=== PATIENT | female | born 1995 | race Caucasian/White ===

== ENCOUNTER 2019-02-25 23:24 | Emergency (ER) | payer SELFPAY ==
[2019-02-25] MEDS ORDERED: Dextrose 5%-0.9% NaCl 1,000 ML IV SCH (23:45)
[2019-02-25] MEDS ORDERED: Ketorolac 30 MG/ML SDV IVPUSH SCH (23:45)
[2019-02-25] MEDS ORDERED: Ondansetron 4 MG/2 ML SDV IVPUSH ONE (23:51)
[2019-02-25] MEDS ORDERED: HYDROmorphone 0.5 MG/0.5 ML Syringe IVPUSH ONE (23:52)
--- NOTE | 2019-02-25 23:52 | EDM.PDOC ---
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 Pain radiates slightly into her back. She states she had mild diffuse lower abdominal cramping pain last night but it seemed to get better overnight. She was able to eat normally today. In the last hour and a half pain in her right lower quadrant and lower abdomen has increased significantly. She states it's constant but she is writhing like a renal colic type patient. Does report that her bowel function is that of chronic constipation and she's not sure when she had her last bowel movement. Last normal menstrual period was about 10 days ago. She does not use any form of control. She states that she is infertile? She is feeling slightly nauseated due to the intensity of the pain tonight. She's had no previous abdominal surgeries. Denies any fever or chills. She states her bowel sounds are very hard and painful to pass and often associated with bleeding per rectum after a bowel movement. Denies any genitourinary complaints. Onset: Sudden Onset Date: 02/25/19 Onset Time: 22:30 Duration: Hour(s):, Getting Worse Location: Reports: Abdomen (Diffuse lower abdominal pain but worse in the right lower quadrant.) Quality: Reports: Ache ( Colicky component to the pain), Sharp, Stabbing Severity: Moderate Improves with: Reports: None Worsens with: Reports: None (810) Context: Reports: Other (Spontaneous occurrence). 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 Denies: Fever, Chills HEENT: Reports: Glasses, Other (Dental problems) Respiratory: Reports: No Symptoms Cardiovascular: Reports: No Symptoms Endocrine: Reports: Fatigue GI/Abdominal: Reports: Abdominal Pain (See history present illness), Constipation (Chronic constipation problems), Hematochezia, Nausea (Nauseated tonight associated with the intensity of abdominal pain) : Reports: No Symptoms, Other (Last normal menstrual period was 10 days ago) Musculoskeletal: Reports: No Symptoms Skin: Reports: No Symptoms Neurological: Reports: No Symptoms Psychiatric: Reports: No Symptoms Hematologic/Lymphatic: Reports: No Symptoms Immunologic: Reports: No Symptoms ED EXAM, GI/ABD - Physical Exam Exam: See Below Exam Limited By: No Limitations General Appearance: Alert, WD/WN, Moderate Distress, Other (She is writhing in pain. Patient is afebrile and vital signs show a heart rate of 88 with a respiratory of 18 BP 107/80 with pulse oximetry of 98% on room air.) Eyes: Bilateral: Normal Appearance (No scleral icterus or blepharal pallor.) Throat/Mouth: Normal Inspection, Normal Lips, Normal Oropharynx, Other Head: Atraumatic, Normocephalic (Tongue is moist) Neck: Normal Inspection, Supple, Non-Tender, Full Range of Motion. No: Lymphadenopathy (L), Lymphadenopathy (R) Respiratory/Chest: No Respiratory Distress, Lungs Clear, Normal Breath Sounds, No Accessory Muscle Use Cardiovascular: Normal Peripheral Pulses, Regular Rate, Rhythm, No Edema, No Gallop GI/Abdominal Exam: Guarding ( but not localized to McBurney's point.), Tender ( Tender to palpation particularly throughout the right hemicolon distribution), Abnormal Bowel Sounds (Hyperactive bowel sounds in all 4 quadrants.), Other (Is a palpable left hemicolon right hemicolon and a mass suprapubically suspicious for colon. No surgical scars noted.) Back Exam: Normal Inspection, Full Range of Motion. No: CVA Tenderness (L), CVA Tenderness (R) Extremities: Normal Inspection, Normal Range of Motion, Non-Tender, No Pedal Edema Neurological: Alert, Oriented, CN II-XII Intact, Normal Cognition Psychiatric: Anxious Skin Exam: Warm, Dry, Intact, Normal Color, No Rash Course - Vital Signs Last Recorded V/S: Last Vital Signs Temp 36.6 C 02/25/19 23:31 Pulse 88 02/25/19 23:31 Resp 18 02/25/19 23:31 BP 107/80 02/25/19 23:31 Pulse Ox 98 02/25/19 23:31 - Orders/Labs/Meds Orders: Active Orders 24 hr Category Date Time Status Abdomen 1V Flat [CR] Stat Exams 02/25/19 23:50 Taken Labs: Laboratory Tests 02/25/19 02/25/19 02/25/19 Range/Units 23:44 23:44 23:44 WBC 7.48 (3.98-10.04) K/mm3 RBC 4.62 (3.98-5.22) M/mm3 Hgb 14.1 (11.2-15.7) gm/dl Hct 41.3 (34.1-44.9) % MCV 89.4 (79.4-94.8) fl MCH 30.5 (25.6-32.2) pg MCHC 34.1 (32.2-35.5) g/dl RDW Std Deviation 43.2 (36.4-46.3) fL Plt Count 366 (182-369) K/mm3 MPV 10.0 (9.4-12.3) fl Neut % (Auto) 50.4 (34.0-71.1) % Lymph % (Auto) 38.6 (19.3-51.7) % [place] % (Auto) 9.9 (4.7-12.5) % Eos % (Auto) 0.7 (0.7-5.8) Baso % (Auto) 0.3 (0.1-1.2) % Neut # (Auto) 3.77 (1.56-6.13) K/mm3 Lymph # (Auto) 2.89 (1.18-3.74) K/mm3 [place] # (Auto) 0.74 H (0.24-0.36) K/mm3 Eos # (Auto) 0.05 (0.04-0.36) K/mm3 Baso # (Auto) 0.02 (0.01-0.08) K/mm3 Sodium 137 (136-145) mEq/L Potassium 4.0 (3.5-5.1) mEq/L Chloride 101 (98-107) mEq/L Carbon Dioxide 23 (21-32) mEq/L Anion Gap 17.0 H (5-15) BUN 11 (7-18) mg/dL Creatinine 0.9 (0.55-1.02) mg/dL Est Cr Clr Drug Dosing 58.16 mL/min Estimated GFR (MDRD) > 60 (>60) mL/min BUN/Creatinine Ratio 12.2 L (14-18) Glucose 102 (74-106) mg/dL Calcium 9.6 (8.5-10.1) mg/dL Total Bilirubin 0.2 (0.2-1.0) mg/dL AST 15 (15-37) U/L ALT 16 (14-59) U/L Alkaline Phosphatase 72 (46-116) U/L C-Reactive Protein < 0.2 (<1.0) mg/dL Total Protein 8.7 H (6.4-8.2) g/dl Albumin 4.5 (3.4-5.0) g/dl Globulin 4.2 gm/dL Albumin/Globulin Ratio 1.1 (1-2) Lipase 104 (73-393) U/L HCG, Qual Negative (NEGATIVE) Urine Color (Yellow) Urine Appearance (Clear) Urine pH (5.0-8.0) Ur Specific [place] (1.005-1.030) Urine Protein (Negative) Urine Glucose (UA) (Negative) Urine Ketones (Negative) Urine Occult Blood (Negative) Urine Nitrite (Negative) Urine Bilirubin (Negative) Urine Urobilinogen (0.2-1.0) Ur Leukocyte Esterase (Negative) Urine RBC (0-5) /hpf Urine WBC (0-5) /hpf Ur Squamous Epith Cells (0-5) /hpf Urine Bacteria (FEW) /hpf Urine Mucus (FEW) /hpf 02/25/19 Range/Units 23:53 WBC (3.98-10.04) K/mm3 RBC (3.98-5.22) M/mm3 Hgb (11.2-15.7) gm/dl Hct (34.1-44.9) % MCV (79.4-94.8) fl MCH (25.6-32.2) pg MCHC (32.2-35.5) g/dl RDW Std Deviation (36.4-46.3) fL Plt Count (182-369) K/mm3 MPV (9.4-12.3) fl Neut % (Auto) (34.0-71.1) % Lymph % (Auto) (19.3-51.7) % [place] % (Auto) (4.7-12.5) % Eos % (Auto) (0.7-5.8) Baso % (Auto) (0.1-1.2) % Neut # (Auto) (1.56-6.13) K/mm3 Lymph # (Auto) (1.18-3.74) K/mm3 [place] # (Auto) (0.24-0.36) K/mm3 Eos # (Auto) (0.04-0.36) K/mm3 Baso # (Auto) (0.01-0.08) K/mm3 Sodium (136-145) mEq/L Potassium (3.5-5.1) mEq/L Chloride (98-107) mEq/L Carbon Dioxide (21-32) mEq/L Anion Gap (5-15) BUN (7-18) mg/dL Creatinine (0.55-1.02) mg/dL Est Cr Clr Drug Dosing mL/min Estimated GFR (MDRD) (>60) mL/min BUN/Creatinine Ratio (14-18) Glucose (74-106) mg/dL Calcium (8.5-10.1) mg/dL Total Bilirubin (0.2-1.0) mg/dL AST (15-37) U/L ALT (14-59) U/L Alkaline Phosphatase (46-116) U/L C-Reactive Protein (<1.0) mg/dL Total Protein (6.4-8.2) g/dl Albumin (3.4-5.0) g/dl Globulin gm/dL Albumin/Globulin Ratio (1-2) Lipase (73-393) U/L HCG, Qual (NEGATIVE) Urine Color Yellow (Yellow) Urine Appearance Clear (Clear) Urine pH 7.0 (5.0-8.0) Ur Specific [place] 1.010 (1.005-1.030) Urine Protein Negative (Negative) Urine Glucose (UA) Negative (Negative) Urine Ketones Negative (Negative) Urine Occult Blood Negative (Negative) Urine Nitrite Negative (Negative) Urine Bilirubin Negative (Negative) Urine Urobilinogen 0.2 (0.2-1.0) Ur Leukocyte Esterase Negative (Negative) Urine RBC Not seen (0-5) /hpf Urine WBC 0-5 (0-5) /hpf Ur Squamous Epith Cells 0-5 (0-5) /hpf Urine Bacteria Rare (FEW) /hpf Urine Mucus Not seen (FEW) /hpf Meds: Medications Discontinued Medications Generic Name Dose Route Start Last Admin Trade Name Vera PRN Reason Stop Dose Admin Dicyclomine HCl 20 mg 02/26/19 01:07 02/26/19 01:11 Bentyl PO 02/26/19 01:08 20 mg ONETIME ONE Administration Hydromorphone HCl 0.5 mg 02/25/19 23:52 02/26/19 00:10 Dilaudid IVPUSH 02/25/19 23:53 0.5 mg ONETIME ONE Administration Dextrose/Sodium Chloride 1,000 mls @ 150 mls/hr 02/25/19 23:45 02/26/19 00:06 Dextrose 5%-Normal Saline IV 150 mls/hr ASDIRECTED ROYCE Administration Ketorolac Tromethamine 30 mg 02/25/19 23:45 02/26/19 00:08 Toradol IVPUSH 30 mg ONETIME ROYCE Administration Magnesium Citrate 296 ml 02/26/19 01:07 02/26/19 01:12 Citrate Of Magnesia PO 02/26/19 01:08 296 ml ONETIME ONE Administration Ondansetron HCl 4 mg 02/25/19 23:51 02/26/19 00:07 Zofran IVPUSH 02/25/19 23:52 4 mg ONETIME ONE Administration - Radiology Interpretation Free Text/Narrative:: 23-year-old female presents to the ED with diffuse lower abdominal pain that she had mildly last evening but returned about an hour and a half ago with marked increase in severity compared to last night. She has had a normal appetite today. She states the pain is making her nauseated but she has not vomited. She localizes the pain to the right hemiabdomen particularly the right lower quadrant. She states she can walk okay. Last menstrual period was 10 days ago and she reports that she's infertile and does not use any form of contraception. Denies any genitourinary complaints. She has a history of chronic severe constipation i.e. severely painful and hard bowel movements that usually cause of rectal bleeding. She not sure when her last bowel movement was but thinks was yesterday. On examination she is afebrile normal vital signs. She is very tender in the right lower quadrant of the abdomen. Mild guarding. Right: Palpable left colon and Propulsid pole mass suprapubically evident on exam. She is very thin making palpation quite easy. Reactive bowel sounds in all 4 quadrants. Clinically I suspect she is constipated. An IV D5 normal saline at 200 mils per hour. She will be given Zofran 4 mg IV and Toradol 30 mg IV and Dilaudid 0.5 mg IV for acute pain relief. Routine labs and CRP to be obtained and a serum lipase. She will have one view of the abdomen obtained. Qualitative beta-hCG will also be done. - Re-Assessments/Exams Free Text/Narrative Re-Assessment/Exam: 02/26/19 00:15 KUB reveals increased stool throughout the entire right hemicolon and left hemicolon. Air distends the transverse colon. There is no signs of bowel obstruction. 02/26/19 00:52 Labs reveal a normal white count at 7.48. Iron differential shows 50% neutrophils. Hemoglobin is 14.1 with hematocrit of 41.3. Platelet count is 366,000. Sodium was 137 with potassium of 4.0. Chloride is 11 with bicarbonate 23 and a gap is mildly elevated at 17.0. BUN is 11 with a creatinine of 0.9 EGFR is greater than 60. Glucose is 102. She was 9.6. Liver function is normal. C-reactive protein is less than 0.2. Total protein is 8.7 with an albumin fraction 4.5. HCG is negative. Urinalysis is completely normal. Discussed the results with the patient. She'll be discharged home to drink 8 ounces of magnesium citrate by mouth with 68 ounces of juice to provide bowel cleanse. It will likely take 3-4 hours to start to work since she just had narcotic pain medication. I did give her a tablet of Bentyl 20 mg that she can take for cramping necessary in the night and a prescription for 5 more tablets if needed. Advised starting MiraLAX powder 17 g once daily to prevent constipation from occurring since this is a rather chronic problem for her. Departure - Departure Time of Disposition: 01:10 Disposition: Home, Self-Care 01 Condition: Fair Clinical Impression: Constipation by delayed colonic transit Abdominal pain Qualifiers: Abdominal location: right lower quadrant Qualified Code(s): R10.31 - Right lower quadrant pain - Discharge Information *PRESCRIPTION DRUG MONITORING PROGRAM REVIEWED*: Not Applicable *COPY OF PRESCRIPTION DRUG MONITORING REPORT IN PATIENT DEANNE: Not Applicable Prescriptions: Dicyclomine [Bentyl] 20 mg PO Q6H PRN #5 tablet PRN Reason: Abdominal cramps/diarrhea Instructions: Constipation, Adult, Abdominal Pain, Adult, [id number] Referrals: PCP,None [Primary Care Provider] - Forms: ED Department Discharge Additional Instructions: Evaluation the emergency room tonight in regards to fairly sudden development of severe right sided and lower abdominal pain. History of chronic constipation. Emanation reveals a very active bowel sounds in all 4 quadrants of the abdomen. I can palpate both right and left colons on examination because you were quite thin. Working diagnosis was suspect constipation is the cause of your pain. Is confirmed by x-ray with a large amount of stool throughout the entire right hemicolon and the left hemicolon and air be in between the bowel up top near the stomach. I attest also proved to be completely negative for any signs of appendicitis and the urinalysis was negative as well. Treatment is therefore to drink 8 ounces of magnesium citrate when you get home mixed with 6- 8 ounces of juice of choice or Gatorade Powerade. Take this once and then I would say go to bed. This will usually take 2-4 hours to work in your bowels will usually move 3 or 4 times ending in bowel cleanse. His Bentyl 20 mg tablet every 6 hours as needed for relief of abdominal cramping pain if necessary. Of note magnesium citrate does not usually cause any abdominal cramps. I would suggest starting MiraLAX powder 17 g or 1 scoop every day to prevent constipation from reoccurring. Return to medical care if you still have significant right lower quadrant abdominal pain in the next 12 hours after bowel cleanse. Sepsis Event Note - Evaluation Sepsis Screening Result: No Definite Risk - Focused Exam Vital Signs: Vital Signs Temp Pulse Resp BP Pulse Ox 02/25/19 23:31 36.6 C 88 18 107/80 98 Date Exam was Performed: 02/26/19 Time Exam was Performed: 01:21 - My Orders Last 24 Hours: My Active Orders 02/25/19 23:50 Abdomen 1V Flat [CR] Stat - Assessment/Plan Last 24 Hours: My Active Orders 02/25/19 23:50 Abdomen 1V Flat [CR] Stat
[2019-02-26] MEDS ORDERED: Magnesium Citrate Solution 296 ML Bottle PO ONE (01:07)
[2019-02-26] MEDS ORDERED: Dicyclomine 10 MG Cap PO ONE (01:07)
--- NOTE | 2019-02-26 06:54 | CR ---
Abdomen: Supine view of the abdomen was obtained. Comparison: No previous abdominal x-ray. Calcifications are seen within the pelvis compatible with phleboliths. Bowel gas pattern is normal. No soft tissue abnormality is seen. Bony structures are unremarkable. Impression: 1. Nothing acute is seen on supine abdominal x-ray. Diagnostic code #1 This report was dictated in [place] Standard Time
== END 2019-02-26 01:15 | disposition home or self-care (01) ==
LOC: JD.ED 23:24
DX: K59.01 Slow transit constipation (principal); Z88.1 Allergy status to other antibiotic agents
CPT/HCPCS: 36415; 74018; 74018-26; 80053; 81001; 83690; 84703; 85025; 86140; 96374; 96375; 99284; 99284-25; A9270-GY; J1170; J1885; J2405; J7042

== ENCOUNTER 2019-03-17 21:47 | Emergency (ER) | payer BC, MEDICAID ==
[2019-03-17] MEDS ORDERED: Ondansetron 4 MG/2 ML SDV IVPUSH ONE (22:53)
[2019-03-17] MEDS ORDERED: Sodium Chloride 0.9% 1,000 ML IV SCH (23:00)
--- NOTE | 2019-03-17 23:00 | EDM.PDOC ---
ED HPI GENERAL MEDICAL PROBLEM - General Chief Complaint: Abdominal Pain Stated Complaint: abdominal pain Time Seen by Provider: 03/17/19 22:22 Source of Information: Reports: Patient, Significant Other (Boyfriend) History Limitations: Reports: No Limitations - History of Present Illness INITIAL COMMENTS - FREE TEXT/NARRATIVE: Ms. Drake is a 23-year-old woman with a past medical history significant for borderline personality disorder, untreated PTSD, and ovarian cysts. She has also been told that she has endometriosis, however, she has never undergone an exploratory laparoscopy to confirm this. She was also told that she likely has fibromyalgia. She has a history of chronic lower abdominal pain since 12 years of age. She says that some days the pain is better, some days worse. She has undergone evaluation in numerous EDs in [place], and she states that she has been to [facility]. She has never had a dedicated Ammonium Nitrate Neutralizer. Medical records indicate that the patient was seen in this ED on 02/25/2019 with lower abdominal pain, worse in the right lower quadrant than elsewhere, with radiation to her back. A KUB found a significant amount of stool. She was prescribed Bentyl and recommended that she take MiraLAX. She states that after she was discharged, she drank some magnesium citrate, had a large bowel movement , which provided relief to her symptoms. The patient now returns to the ED complaining of lower abdominal pain, along with nausea and vomiting. She also reports pain in her arms, and that her legs give out from under her, causing her to collapse. She reports dyspnea when she has pain. She reports urinary frequency, but no dysuria, however, she states that when she urinates, it causes her lower abdominal pain to increase. No recent fever, chills, cough, recent weight gain or weight loss, recent bloody bowel movements or black bowel movements, joint aches, or rashes. She states that she has not had any constipation since she was able to evacuate following her last ED visit, and she has no recent watery diarrhea. Reports that she gets frequent headaches. The patient states that she took Tylenol extra strength around 8:00 this morning , but nothing since. Here in the ED, the patient is found to be tachycardic at 108 bpm, but is otherwise hemodynamically stable. The patient does not have a PCP. She did not receive an influenza vaccine this season, and declined an offer to receive one here today. 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: Reports: Endometriosis (suspected, not confirmed), Other (See Below) (Ovarian cysts) Psychiatric History: Reports: PTSD (untreated), Other (See Below) (Borderline personality disorder) - Past Surgical History HEENT Surgical History: Reports: Adenoidectomy, Myringotomy w Tube(s) (bilateral ) Social & Family History - Family History Family Medical History: Noncontributory - Tobacco Use Smoking Status *Q: Current Every Day Smoker Years of Tobacco use: 11 Packs/Tins Daily: 0.5 Packs/Tins Daily Comment: Down from 1 ppd - Caffeine Use Caffeine Use: Reports: Coffee, Soda - Alcohol Use Alcohol Use History: Yes Alcohol Use Frequency: Socially (occasionally to excess) - Recreational Drug Use Recreational Drug Use: Yes Drug Use in Last 12 Months: Yes Recreational Drug Type: Reports: LSD (Acid) (last took 2014), Marijuana/Hashish (smokes daily), Methamphetamine (last smoked, injected Dec 2017) Recreational Drug Use Frequency: Socially - Living Situation & Occupation Living situation: Reports: Single, with Significant Other (Boyfriend + his father) Occupation: Unemployed ED ROS GENERAL - Review of Systems Review Of Systems: Comprehensive ROS is negative, except as noted in HPI. ED EXAM, GI/ABD - Physical Exam Exam: See Below Exam Limited By: No Limitations General Appearance: Alert, WD/WN, Other (Indicating extreme pain, particularly with any movement or palpation, which resolves when distracted) Eyes: Bilateral: Normal Appearance, EOMI Ears: Normal External Exam, Hearing Grossly Normal Nose: Normal Inspection Throat/Mouth: Normal Inspection, Normal Lips, Normal Voice, No Airway Compromise Head: Atraumatic, Normocephalic Neck: Normal Inspection, Full Range of Motion Respiratory/Chest: No Respiratory Distress, Lungs Clear, Normal Breath Sounds, No Accessory Muscle Use Cardiovascular: Normal Peripheral Pulses, Regular Rate, Rhythm, No Edema, No Gallop, No JVD, No Murmur, No Rub GI/Abdominal Exam: Normal Bowel Sounds, Soft, No Organomegaly, No Distention, No Abnormal Bruit, No Mass, Tender (Generalized, with greater tenderness in the suprapubic region than elsewhere) (Female) Exam: Deferred Rectal (Female) Exam: Deferred Back Exam: Normal Inspection, Full Range of Motion. No: CVA Tenderness (L), CVA Tenderness (R) Extremities: Normal Inspection, Normal Range of Motion, No Pedal Edema, Normal Capillary Refill Neurological: Alert, Oriented, Normal Cognition, No Motor/Sensory Deficits Psychiatric: Anxious Skin Exam: Warm, Dry, Intact, Normal Color, No Rash Course - Vital Signs Last Recorded V/S: Last Vital Signs Temp 36.9 C 03/17/19 21:58 Pulse 108 H 03/17/19 21:58 Resp 16 03/17/19 21:58 BP 114/72 03/17/19 21:58 Pulse Ox 96 03/17/19 21:58 - Orders/Labs/Meds Orders: Active Orders 24 hr Category Date Time Status Abdomen Pelvis w Cont [CT] Stat Exams 03/17/19 22:53 Taken Sodium Chloride 0.9% [Normal Saline] 1,000 ml Med 03/17/19 23:00 Active IV ASDIRECTED Medication Orders Sodium Chloride (Normal Saline) 1,000 mls @ 150 mls/hr IV ASDIRECTED ROYCE Last Admin: 03/17/19 23:10 Dose: 150 mls/hr Labs: Laboratory Tests 03/17/19 03/17/19 03/17/19 Range/Units 22:36 22:36 23:00 WBC 5.91 (3.98-10.04) K/mm3 RBC 3.98 (3.98-5.22) M/mm3 Hgb 12.1 D (11.2-15.7) gm/dl Hct 36.3 (34.1-44.9) % MCV 91.2 (79.4-94.8) fl MCH 30.4 (25.6-32.2) pg MCHC 33.3 (32.2-35.5) g/dl RDW Std Deviation 43.0 (36.4-46.3) fL Plt Count 333 (182-369) K/mm3 MPV 9.2 L (9.4-12.3) fl Neutrophils % (Manual) 47 (40-60) % Band Neutrophils % 0 (0-10) % Lymphocytes % (Manual) 46 H (20-40) % Atypical Lymphs % 0 % Monocytes % (Manual) 5 (2-10) % Eosinophils % (Manual) 1 (0.7-5.8) % Basophils % (Manual) 1 (0.1-1.2) Platelet Estimate Adequate Plt Morphology Comment Normal RBC Morph Comment Normal Sodium (136-145) mEq/L Potassium (3.5-5.1) mEq/L Chloride (98-107) mEq/L Carbon Dioxide (21-32) mEq/L Anion Gap (5-15) BUN (7-18) mg/dL Creatinine (0.55-1.02) mg/dL Est Cr Clr Drug Dosing mL/min Estimated GFR (MDRD) (>60) mL/min BUN/Creatinine Ratio (14-18) Glucose (74-106) mg/dL Calcium (8.5-10.1) mg/dL Total Bilirubin (0.2-1.0) mg/dL AST (15-37) U/L ALT (14-59) U/L Alkaline Phosphatase (46-116) U/L Total Protein (6.4-8.2) g/dl Albumin (3.4-5.0) g/dl Globulin gm/dL Albumin/Globulin Ratio (1-2) Lipase (73-393) U/L Urine Color Yellow (Yellow) Urine Appearance Clear (Clear) Urine pH 6.5 (5.0-8.0) Ur Specific [place] 1.015 (1.005-1.030) Urine Protein Negative (Negative) Urine Glucose (UA) Negative (Negative) Urine Ketones Negative (Negative) Urine Occult Blood Negative (Negative) Urine Nitrite Negative (Negative) Urine Bilirubin Negative (Negative) Urine Urobilinogen 0.2 (0.2-1.0) Ur Leukocyte Esterase Negative (Negative) Urine RBC Not seen (0-5) /hpf Urine WBC 0-5 (0-5) /hpf Ur Squamous Epith Cells 0-5 (0-5) /hpf Urine Bacteria Rare (FEW) /hpf Urine Mucus Not seen (FEW) /hpf Urine HCG, Qual Negative (NEGATIVE) 03/17/19 Range/Units 23:00 WBC (3.98-10.04) K/mm3 RBC (3.98-5.22) M/mm3 Hgb (11.2-15.7) gm/dl Hct (34.1-44.9) % MCV (79.4-94.8) fl MCH (25.6-32.2) pg MCHC (32.2-35.5) g/dl RDW Std Deviation (36.4-46.3) fL Plt Count (182-369) K/mm3 MPV (9.4-12.3) fl Neutrophils % (Manual) (40-60) % Band Neutrophils % (0-10) % Lymphocytes % (Manual) (20-40) % Atypical Lymphs % % Monocytes % (Manual) (2-10) % Eosinophils % (Manual) (0.7-5.8) % Basophils % (Manual) (0.1-1.2) Platelet Estimate Plt Morphology Comment RBC Morph Comment Sodium 139 (136-145) mEq/L Potassium 3.6 (3.5-5.1) mEq/L Chloride 102 (98-107) mEq/L Carbon Dioxide 26 (21-32) mEq/L Anion Gap 14.6 (5-15) BUN 7 (7-18) mg/dL Creatinine 0.8 (0.55-1.02) mg/dL Est Cr Clr Drug Dosing 77.22 mL/min Estimated GFR (MDRD) > 60 (>60) mL/min BUN/Creatinine Ratio 8.8 L (14-18) Glucose 87 (74-106) mg/dL Calcium 9.2 (8.5-10.1) mg/dL Total Bilirubin 0.2 (0.2-1.0) mg/dL AST 12 L (15-37) U/L ALT 18 (14-59) U/L Alkaline Phosphatase 64 (46-116) U/L Total Protein 7.8 (6.4-8.2) g/dl Albumin 4.1 (3.4-5.0) g/dl Globulin 3.7 gm/dL Albumin/Globulin Ratio 1.1 (1-2) Lipase 53 L (73-393) U/L Urine Color (Yellow) Urine Appearance (Clear) Urine pH (5.0-8.0) Ur Specific [place] (1.005-1.030) Urine Protein (Negative) Urine Glucose (UA) (Negative) Urine Ketones (Negative) Urine Occult Blood (Negative) Urine Nitrite (Negative) Urine Bilirubin (Negative) Urine Urobilinogen (0.2-1.0) Ur Leukocyte Esterase (Negative) Urine RBC (0-5) /hpf Urine WBC (0-5) /hpf Ur Squamous Epith Cells (0-5) /hpf Urine Bacteria (FEW) /hpf Urine Mucus (FEW) /hpf Urine HCG, Qual (NEGATIVE) Meds: Medications Generic Name Dose Route Start Last Admin Trade Name Freq PRN Reason Stop Dose Admin Sodium Chloride 1,000 mls @ 150 mls/hr 03/17/19 23:00 03/17/19 23:10 Normal Saline IV 150 mls/hr ASDIRECTED ROYCE Administration Discontinued Medications Generic Name Dose Route Start Last Admin Trade Name Freq PRN Reason Stop Dose Admin Diatrizoate Meglum/Diatrizoate Sod 90 ml 03/18/19 00:28 03/18/19 00:30 Gastrografin 37% PO 03/18/19 00:29 90 ml ONETIME ONE Administration Iopamidol 100 ml 03/18/19 00:29 03/18/19 00:30 Isovue-300 (61%) IVPUSH 03/18/19 00:30 100 ml ONETIME ONE Administration Ketorolac Tromethamine 30 mg 03/18/19 00:02 03/18/19 00:45 Toradol IVPUSH 03/18/19 00:03 30 mg ONETIME STA Administration Ondansetron HCl 4 mg 03/17/19 22:53 03/17/19 23:10 Zofran IVPUSH 03/17/19 22:54 4 mg ONETIME ONE Administration - Re-Assessments/Exams Free Text/Narrative Re-Assessment/Exam: 03/17/19 22:55 I am not convinced that the patient is experiencing the degree of pain that she is trying to impress upon me that she has. There is a considerable amount of drama and exaggeration. Additionally, the patient immediately asked for something for pain. I am concerned about giving her opioids, especially given her prior abuse of drugs. I would prefer to wait to see if there is something that needs treating. I have ordered a workup today that includes blood work, a urinalysis, a urine test, and a CT scan of her abdomen and pelvis with oral and IV contrast. In the meantime, the patient will receive IV Zofran and IV fluid. 03/17/19 23:57 The patient's CBC is unremarkable. Her CMP is unremarkable. Her lipase is low at 53. Her urinalysis is unremarkable. Her urine test is negative. 03/18/19 01:17 CT of the abdomen and pelvis with oral and IV contrast is read by Alesha as: 1. Wall thickening of the descending and sigmoid colon. Finding may be secondary to pseudo-wall thickening / under distention versus mild colitis. 2. No CT findings of acute appendicitis. I suspect that the descending colon wall thickening is likely related to the recent constipation with the patient experienced. I do not clinically suspect colitis. 03/18/19 01:51 Test results discussed with the patient and her boyfriend. As above, today's workup is entirely unremarkable and does not explain the cause of her pain. I suggested that she follow-up with a Ammonium Nitrate Neutralizer that I could refer her to, however, she tells me that she has an appointment to establish a PCP at [facility] 1 week from today, on 03/25/2019 - she does not recall the PCP' s name. Since many PCPs are comfortable managing women's health issues, I am not going to additionally refer the patient to a Ammonium Nitrate Neutralizer at this time, rather, that can be left to her new PCP if felt necessary. Departure - Departure Time of Disposition: 01:54 Disposition: Home, Self-Care 01 Condition: Good Clinical Impression: Abdominal pain of unknown etiology - Discharge Information *PRESCRIPTION DRUG MONITORING PROGRAM REVIEWED*: Not Applicable *COPY OF PRESCRIPTION DRUG MONITORING REPORT IN PATIENT DEANNE: Not Applicable Referrals: PCP,None [Primary Care Provider] - Forms: ED Department Discharge Additional Instructions: You were seen in the emergency room for chronic lower abdominal pain with nausea and vomiting. Workup in the ER included blood work, a urinalysis, a urine test, and a CT scan of your abdomen and pelvis with oral and IV contrast. Your entire workup was unremarkable, and does not explain the cause of your pain. You do not have appendicitis, and, of note, there is no evidence that you have polycystic ovarian syndrome. We recommend that you follow-up with your new PCP at your previously scheduled appointment this coming 03/25/2019. If any other problems, please do not hesitate to return to the ER. Sepsis Event Note - Evaluation Sepsis Screening Result: No Definite Risk - Focused Exam Vital Signs: Vital Signs Temp Pulse Resp BP Pulse Ox 03/17/19 21:58 36.9 C 108 H 16 114/72 96 Date Exam was Performed: 03/18/19 Time Exam was Performed: 01:51 - My Orders Last 24 Hours: My Active Orders 03/17/19 22:53 Abdomen Pelvis w Cont [CT] Stat 03/17/19 23:00 Sodium Chloride 0.9% [Normal Saline] 1,000 ml IV ASDIRECTED - Assessment/Plan Last 24 Hours: My Active Orders 03/17/19 22:53 Abdomen Pelvis w Cont [CT] Stat 03/17/19 23:00 Sodium Chloride 0.9% [Normal Saline] 1,000 ml IV ASDIRECTED
[2019-03-18] MEDS ORDERED: Ketorolac 30 MG/ML SDV IVPUSH STA (00:02)
[2019-03-18] MEDS ORDERED: Diatrizoate Meglumine/Diatrizoate Sodium 37% 120 ML Bottle PO ONE (00:28)
[2019-03-18] MEDS ORDERED: Iopamidol 612 MG/ML 100 ML Bottle IVPUSH ONE (00:29)
--- NOTE | 2019-03-18 07:48 | CT ---
CT abdomen and pelvis Technique: Multiple axial sections were obtained from above the dome of the diaphragm inferiorly through the pubic symphysis. Intravenous and oral contrast was utilized. Comparison: Prior abdominal x-ray of 02/25/19 is available. Findings: Visualized lung bases show nothing acute. Liver contains no focal parenchymal abnormality. Spleen appears within normal limits. Adrenal glands show no nodule. Pancreas is within normal limits. Kidneys show symmetric contrast enhancement without hydronephrosis or mass. Gallbladder contains no calcified gallstones. Aorta shows no aneurysm. No retroperitoneal adenopathy or mesenteric abnormalities are seen. No pelvic mass is identified. Small amount of free fluid is noted within the cul-de-sac believed to be physiologic. Follicles are noted within both ovaries. Minimal bowel wall thickening is seen within the sigmoid colon which is believed to be normal and due to lack of distention. No findings of bowel obstruction or bowel dilatation is seen. No inflammatory change is appreciated. Delayed images show contrast within the distal ureters and within the bladder. Appendix is seen and is normal in size. Bone window settings were reviewed which appear within normal limits for the portions age. Impression: 1. Small amount of free fluid within the pelvis which is believed to be physiologic. 2. Findings within the sigmoid colon believed to be due to under-distention and incidental. 3. Nothing acute is appreciated on CT study of the abdomen and pelvis. Diagnostic code #2 This report was dictated in [place] Standard Time I agree with preliminary report from [facility], finalized on [id number] [id number], 1:51 AM Central Time
== END 2019-03-18 02:07 | disposition home or self-care (01) ==
LOC: JD.ED 21:47
DX: R10.30 Lower abdominal pain, unspecified (principal); F17.210 Nicotine dependence, cigarettes, uncomplicated; Z88.1 Allergy status to other antibiotic agents
CPT/HCPCS: 36415; 74177; 80053; 81001; 81025; 83690; 85007; 85027; 96361; 96374; 96375; 99284; J1885; J2405; J7030; Q9963; Q9967

== ENCOUNTER 2019-04-28 17:47 | Emergency (ER) | payer BC, MEDICAID ==
[2019-04-28] MEDS ORDERED: Ondansetron 4 MG/2 ML SDV IVPUSH ONE (18:31)
[2019-04-28] MEDS ORDERED: Sodium Chloride 0.9% 10 ML Syringe FLUSH PRN (18:31)
[2019-04-28] MEDS ORDERED: Sodium Chloride 0.9% 1,000 ML IV SCH (18:45)
[2019-04-28] MEDS ORDERED: Ketorolac 30 MG/ML SDV IVPUSH ONE (19:09)
--- NOTE | 2019-04-28 19:22 | EDM.PDOC ---
ED HPI GENERAL MEDICAL PROBLEM - General Chief Complaint: Abdominal Pain Stated Complaint: PELVIC PAIN/VOMITING Time Seen by Provider: 04/28/19 18:04 Source of Information: Reports: Patient History Limitations: Reports: No Limitations - History of Present Illness INITIAL COMMENTS - FREE TEXT/NARRATIVE: Patient is a 23-year-old female who presents with complaints of low pelvic pain with intermittent nausea and vomiting for the last week. Patient was seen in this emergency department approximately 1 month ago with similar symptoms. She states the pain has worsened over the last week. She feels that she may have ovarian cysts as she has had them in the past. The pain is located in the bilateral pelvic area. She verbalizes that she has had bilateral ovarian cyst pain in the past. She is also been told in the past that she has endometriosis , however she has never had a exploratory laparoscopy done to officially diagnose that. Patient states she has had chronic pelvic pain since she was 12 years old. She states that she has had regular bowel movements and does not feel she is constipated. She is not on control and states that she is 2 weeks late on her period. Denies any dysuria however has had some frequency. Denies any abnormal vaginal discharge. She also complains of intermittent dizziness after standing. She has not had a syncopal episode associated with this dizziness. Patient does not have a primary care provider nor has she ever seen a glass bulb silverer. Patient did verbalize on her previous visit that she had an appointment scheduled in March with a primary care provider at [place], however she missed that appointment. She states that her next appointment is now on May 19 at [place] to establish care. Pelvic Pain Score (Numeric/FACES): 8 - Related Data Allergies Allergy/AdvReac Type Severity Reaction Status Date / Time doxycycline Allergy Itching Verified 03/17/19 22:01 Home Meds: Home Meds ARIPiprazole [Abilify] 1 tab PO DAILY 04/28/19 [History] Naproxen [Naprosyn] 500 mg PO Q12HR PRN #10 tab 04/28/19 [Rx] Ondansetron [Zofran ODT] 4 mg PO Q6H PRN #10 tab.dis 04/28/19 [Rx] QUEtiapine [SEROquel] 1.5 tab PO BEDTIME 04/28/19 [History] Past Medical History HEENT History: Reports: Other (See Below) Respiratory History: Reports: Asthma Gastrointestinal History: Reports: Irritable Bowel Syndrome, Other (See Below) Other Gastrointestinal History: Diverticulitis [employer] History: Reports: Endometriosis, Other (See Below) Musculoskeletal History: Reports: Other (See Below) Other Musculoskeletal History: pt sttaed having lots of pain but not dx. pt thinks she has fibromyalgia. uses marijuana for pain control. Psychiatric History: Reports: PTSD, Other (See Below) Other Psychiatric History: Borderline personality disorder - Past Surgical History HEENT Surgical History: Reports: Adenoidectomy, Myringotomy w Tube(s) Social & Family History - Family History Family Medical History: Noncontributory - Tobacco Use Smoking Status *Q: Current Every Day Smoker Years of Tobacco use: 12 Packs/Tins Daily: 0.5 - Caffeine Use Caffeine Use: Reports: Coffee, Soda, Tea - Recreational Drug Use Recreational Drug Use: Yes Recreational Drug Type: Reports: Marijuana/Hashish Recreational Drug Use Frequency: Socially - Living Situation & Occupation Living situation: Reports: Single, with Significant Other (Boyfriend + his father) Occupation: Unemployed ED ROS GENERAL - Review of Systems Review Of Systems: Comprehensive ROS is negative, except as noted in HPI. ED EXAM, GI/ABD - Physical Exam Exam: See Below Exam Limited By: No Limitations General Appearance: Alert, WD/WN, No Apparent Distress, Other (Texting on her cell phone during the exam.) Respiratory/Chest: No Respiratory Distress, Lungs Clear, Normal Breath Sounds, No Accessory Muscle Use, Chest Non-Tender Cardiovascular: Normal Peripheral Pulses, Regular Rate, Rhythm, No Edema, No Gallop, No JVD, No Murmur, No Rub GI/Abdominal Exam: Normal Bowel Sounds, Soft, No Organomegaly, No Distention, No Abnormal Bruit, No Mass, Pelvis Stable, Tender (Bilateral suprapubic) Neurological: Alert, Oriented, CN II-XII Intact, Normal Cognition, Normal Gait, Normal Reflexes, No Motor/Sensory Deficits Psychiatric: Normal Affect, Normal Mood Skin Exam: Warm, Dry, Intact, Normal Color, No Rash Course - Vital Signs Last Recorded V/S: Last Vital Signs Temp 99.6 F 04/28/19 18:05 Pulse 98 04/28/19 18:05 Resp 18 04/28/19 18:05 BP 113/73 04/28/19 18:05 Pulse Ox 100 04/28/19 18:05 Orthostatic Blood Pressure [ 109/77 Standing] Orthostatic Blood Pressure [ 104/66 Sitting] Orthostatic Blood Pressure [ 103/61 Supine] - Orders/Labs/Meds Orders: Active Orders 24 hr Category Date Time Status Peripheral IV Care [RC] . DIRECTED Care 04/28/19 18:31 Active Sodium Chloride 0.9% [Normal Saline] 1,000 ml Med 04/28/19 18:45 Active IV ASDIRECTED Sodium Chloride 0.9% [Saline Flush] Med 04/28/19 18:31 Active 10 ml FLUSH ASDIRECTED PRN Peripheral IV Insertion Adult [OM.PC] Stat Oth 04/28/19 18:30 Ordered Medication Orders Sodium Chloride (Normal Saline) 1,000 mls @ 999 mls/hr IV ASDIRECTED ROYCE Last Admin: 04/28/19 18:45 Dose: 999 mls/hr Sodium Chloride (Saline Flush) 10 ml FLUSH ASDIRECTED PRN PRN Reason: Keep Vein Open Last Admin: 04/28/19 18:45 Dose: 10 ml Labs: Laboratory Tests 04/28/19 04/28/19 04/28/19 Range/Units 18:15 18:15 18:38 WBC 8.34 (3.98-10.04) K/mm3 RBC 4.05 (3.98-5.22) M/mm3 Hgb 12.1 (11.2-15.7) gm/dl Hct 36.8 (34.1-44.9) % MCV 90.9 (79.4-94.8) fl MCH 29.9 (25.6-32.2) pg MCHC 32.9 (32.2-35.5) g/dl RDW Std Deviation 44.1 (36.4-46.3) fL Plt Count 312 (182-369) K/mm3 MPV 9.5 (9.4-12.3) fl Neut % (Auto) 67.2 (34.0-71.1) % Lymph % (Auto) 22.4 (19.3-51.7) % Sebastian % (Auto) 9.7 (4.7-12.5) % Eos % (Auto) 0.4 L (0.7-5.8) Baso % (Auto) 0.2 (0.1-1.2) % Neut # (Auto) 5.60 (1.56-6.13) K/mm3 Lymph # (Auto) 1.87 (1.18-3.74) K/mm3 Sebastian # (Auto) 0.81 H (0.24-0.36) K/mm3 Eos # (Auto) 0.03 L (0.04-0.36) K/mm3 Baso # (Auto) 0.02 (0.01-0.08) K/mm3 Sodium (136-145) mEq/L Potassium (3.5-5.1) mEq/L Chloride (98-107) mEq/L Carbon Dioxide (21-32) mEq/L Anion Gap (5-15) BUN (7-18) mg/dL Creatinine (0.55-1.02) mg/dL Est Cr Clr Drug Dosing mL/min Estimated GFR (MDRD) (>60) mL/min BUN/Creatinine Ratio (14-18) Glucose (74-106) mg/dL Calcium (8.5-10.1) mg/dL Total Bilirubin (0.2-1.0) mg/dL AST (15-37) U/L ALT (14-59) U/L Alkaline Phosphatase (46-116) U/L C-Reactive Protein (<1.0) mg/dL Total Protein (6.4-8.2) g/dl Albumin (3.4-5.0) g/dl Globulin gm/dL Albumin/Globulin Ratio (1-2) Urine Color Yellow (Yellow) Urine Appearance Clear (Clear) Urine pH 7.0 (5.0-8.0) Ur Specific [place] 1.020 (1.005-1.030) Urine Protein Negative (Negative) Urine Glucose (UA) Negative (Negative) Urine Ketones Negative (Negative) Urine Occult Blood Negative (Negative) Urine Nitrite Negative (Negative) Urine Bilirubin Negative (Negative) Urine Urobilinogen 0.2 (0.2-1.0) Ur Leukocyte Esterase Trace H (Negative) Urine RBC 0-5 (0-5) /hpf Urine WBC 0-5 (0-5) /hpf Ur Squamous Epith Cells 0-5 (0-5) /hpf Urine Bacteria Few (FEW) /hpf Urine Mucus Not seen (FEW) /hpf Urine HCG, Qual Negative (NEGATIVE) 04/28/19 Range/Units 18:38 WBC (3.98-10.04) K/mm3 RBC (3.98-5.22) M/mm3 Hgb (11.2-15.7) gm/dl Hct (34.1-44.9) % MCV (79.4-94.8) fl MCH (25.6-32.2) pg MCHC (32.2-35.5) g/dl RDW Std Deviation (36.4-46.3) fL Plt Count (182-369) K/mm3 MPV (9.4-12.3) fl Neut % (Auto) (34.0-71.1) % Lymph % (Auto) (19.3-51.7) % Sebastian % (Auto) (4.7-12.5) % Eos % (Auto) (0.7-5.8) Baso % (Auto) (0.1-1.2) % Neut # (Auto) (1.56-6.13) K/mm3 Lymph # (Auto) (1.18-3.74) K/mm3 Sebastian # (Auto) (0.24-0.36) K/mm3 Eos # (Auto) (0.04-0.36) K/mm3 Baso # (Auto) (0.01-0.08) K/mm3 Sodium 141 (136-145) mEq/L Potassium 4.0 (3.5-5.1) mEq/L Chloride 105 (98-107) mEq/L Carbon Dioxide 25 (21-32) mEq/L Anion Gap 15.0 (5-15) BUN 11 (7-18) mg/dL Creatinine 0.8 (0.55-1.02) mg/dL Est Cr Clr Drug Dosing 69.28 mL/min Estimated GFR (MDRD) > 60 (>60) mL/min BUN/Creatinine Ratio 13.8 L (14-18) Glucose 94 (74-106) mg/dL Calcium 9.0 (8.5-10.1) mg/dL Total Bilirubin 0.2 (0.2-1.0) mg/dL AST 11 L (15-37) U/L ALT 17 (14-59) U/L Alkaline Phosphatase 56 (46-116) U/L C-Reactive Protein <0.2 (<1.0) mg/dL Total Protein 7.5 (6.4-8.2) g/dl Albumin 3.9 (3.4-5.0) g/dl Globulin 3.6 gm/dL Albumin/Globulin Ratio 1.1 (1-2) Urine Color (Yellow) Urine Appearance (Clear) Urine pH (5.0-8.0) Ur Specific [place] (1.005-1.030) Urine Protein (Negative) Urine Glucose (UA) (Negative) Urine Ketones (Negative) Urine Occult Blood (Negative) Urine Nitrite (Negative) Urine Bilirubin (Negative) Urine Urobilinogen (0.2-1.0) Ur Leukocyte Esterase (Negative) Urine RBC (0-5) /hpf Urine WBC (0-5) /hpf Ur Squamous Epith Cells (0-5) /hpf Urine Bacteria (FEW) /hpf Urine Mucus (FEW) /hpf Urine HCG, Qual (NEGATIVE) Meds: Medications Generic Name Dose Route Start Last Admin Trade Name Freq PRN Reason Stop Dose Admin Sodium Chloride 1,000 mls @ 999 mls/hr 04/28/19 18:45 04/28/19 18:45 Normal Saline IV 999 mls/hr ASDIRECTED ROYCE Administration Sodium Chloride 10 ml 04/28/19 18:31 04/28/19 18:45 Saline Flush FLUSH 10 ml ASDIRECTED PRN Administration Keep Vein Open Discontinued Medications Generic Name Dose Route Start Last Admin Trade Name Freq PRN Reason Stop Dose Admin Acetaminophen 975 mg 04/28/19 21:03 04/28/19 21:11 Tylenol PO 04/28/19 21:04 975 mg NOW ONE Administration Ketorolac Tromethamine 30 mg 04/28/19 19:09 04/28/19 19:57 Toradol IVPUSH 04/28/19 19:10 30 mg ONETIME ONE Administration Ondansetron HCl 4 mg 04/28/19 18:31 04/28/19 18:45 Zofran IVPUSH 04/28/19 18:32 4 mg ONETIME ONE Administration - Re-Assessments/Exams Free Text/Narrative Re-Assessment/Exam: 04/28/19 21:41 Patient's hematology was grossly unremarkable. Transvaginal ultrasound showed a slightly complicated cyst within the right ovary measuring 3.2 cm. This is believed to be physiologic. She also has a small amount of fluid within the cul -de-sac which is also believed to be physiologic. Discussed with patient that there is a possibility that her pain could be related to endometriosis, however without an exploratory laparoscopy, this cannot be confirmed. We will start her on Naprosyn 500 mg every 12 hours as needed for pain as well as Zofran as needed for nausea. I did provide her with a list of our clinic providers and advised her to call tomorrow morning to set up an appointment with an [employer]. Her appointment at [place] is not until 19 May and I advised that it is likely she will get in before then. Discharge instructions as documented. Departure - Departure Time of Disposition: 21:43 Disposition: Home, Self-Care 01 Condition: Good Clinical Impression: Pelvic pain - Discharge Information *PRESCRIPTION DRUG MONITORING PROGRAM REVIEWED*: No *COPY OF PRESCRIPTION DRUG MONITORING REPORT IN PATIENT DEANNE: No Prescriptions: Naproxen [Naprosyn] 500 mg PO Q12HR PRN #10 tab PRN Reason: Pain Ondansetron [Zofran ODT] 4 mg PO Q6H PRN #10 tab.dis PRN Reason: Pain Instructions: Abdominal Pain, Adult, [id number] Referrals: PCP,None [Primary Care Provider] - Forms: ED Department Discharge Additional Instructions: You were seen in the emergency department today for pelvic pain. As you verbalizes has been a chronic pain problem for you since you are 12 years old, however over the last week you state the symptoms have worsened. Your work-up included lab work, urinalysis, and a pelvic ultrasound. Your work-up was found to be normal with the exception of a 3.2 cm cyst on your right ovary. As we discussed, this is likely not the cause your pain is ovarian cyst do not generally cause pain until they rupture. Your work-up showed that you are not and you do not have a urinary tract infection. Your blood work was all found to be normal. You have been prescribed Zofran as needed for nausea, as well as Naprosyn for pain. Use these medications as prescribed. You have also been provided a list of our medical providers in the clinic as well as a phone number to schedule an appointment. I recommend that you call first thing tomorrow morning to get set up with a glass bulb silverer for ongoing management of your chronic pelvic pain. If you should experience any worsening symptoms of concern, please not hesitate to return to the emergency department. Sepsis Event Note - Evaluation Sepsis Screening Result: No Definite Risk - Focused Exam Vital Signs: Vital Signs Temp Pulse Resp BP Pulse Ox 04/28/19 18:05 99.6 F 98 18 113/73 100 Date Exam was Performed: 04/28/19 Time Exam was Performed: 21:50 - My Orders Last 24 Hours: My Active Orders 04/28/19 18:30 Peripheral IV Insertion Adult [OM.PC] Stat 04/28/19 18:31 Peripheral IV Care [RC] . DIRECTED Sodium Chloride 0.9% [Saline Flush] 10 ml FLUSH ASDIRECTED PRN 04/28/19 18:45 Sodium Chloride 0.9% [Normal Saline] 1,000 ml IV ASDIRECTED - Assessment/Plan Last 24 Hours: My Active Orders 04/28/19 18:30 Peripheral IV Insertion Adult [OM.PC] Stat 04/28/19 18:31 Peripheral IV Care [RC] . DIRECTED Sodium Chloride 0.9% [Saline Flush] 10 ml FLUSH ASDIRECTED PRN 04/28/19 18:45 Sodium Chloride 0.9% [Normal Saline] 1,000 ml IV ASDIRECTED
[2019-04-28] MEDS ORDERED: Acetaminophen 325 MG Tab PO ONE (21:03)
--- NOTE | 2019-04-28 21:11 | US ---
Pelvic ultrasound: Multiple real-time images were obtained transvaginally. Comparison: No prior pelvic ultrasound is available. Uterus is anteverted. No myometrial abnormality is seen. Endometrial thickness is 8.7 mm. There is a small amount of free fluid within the cul-de-sac which is believed to be physiologic. Slightly complicated cyst measuring 3.2 cm is noted within the right ovary. No additional abnormality is appreciated. Measurements: Uterus: Length 6.8 cm, AP height 3.4 cm, transverse width 3.9 cm Right ovary: 5.5 x 2.8 x 3.2 cm Left ovary: 3.9 x 2.2 x 2.3 cm Impression: 1. Slightly complicated cyst within the right ovary measuring 3.2 cm believed to be physiologic. 2. Small amount of fluid within the cul-de-sac also believed to be physiologic. 3. No additional abnormality is appreciated on pelvic ultrasound exam. Diagnostic code #2 Study was dictated in MDT
== END 2019-04-28 21:55 | disposition home or self-care (01) ==
LOC: JD.ED 17:47
DX: R10.2 Pelvic and perineal pain (principal); N83.201 Unspecified ovarian cyst, right side; R11.2 Nausea with vomiting, unspecified; F17.210 Nicotine dependence, cigarettes, uncomplicated; J45.909 Unspecified asthma, uncomplicated; F43.10 Post-traumatic stress disorder, unspecified; Z79.899 Other long term (current) drug therapy; Z88.1 Allergy status to other antibiotic agents
CPT/HCPCS: 36415; 76830; 80053; 81001; 81025; 85025; 86140; 96361; 96374; 96375; 99284; A9270; J1885; J2405; J7030; 99283

== ENCOUNTER 2019-08-21 16:51 | Emergency (ER) | payer BC, MEDICAID ==
[2019-08-21] MEDS ORDERED: Sodium Chloride 0.9% 10 ML Syringe FLUSH PRN (17:16)
[2019-08-21] MEDS ORDERED: HYDROmorphone 0.5 MG/0.5 ML Syringe IVPUSH ONE ×2 (17:16→19:26)
[2019-08-21] MEDS ORDERED: Ondansetron 4 MG/2 ML SDV IVPUSH ONE (17:17)
[2019-08-21] MEDS ORDERED: Sodium Chloride 0.9% 1,000 ML IV SCH (17:30)
--- NOTE | 2019-08-21 17:31 | EDM.PDOC ---
ED HPI GENERAL MEDICAL PROBLEM - General Chief Complaint: Abdominal Pain Stated Complaint: LT SIDE PAIN Time Seen by Provider: 08/21/19 17:07 Source of Information: Reports: Patient History Limitations: Reports: No Limitations - History of Present Illness INITIAL COMMENTS - FREE TEXT/NARRATIVE: Patient is a 24-year-old female who presents to the emergency department with complaints of left lateral abdominal pain. She states that she had mild symptoms throughout the night, however upon getting out of bed at noon today, the symptoms became significantly worse. She did have a bowel movement earlier today, however it was quite hard. She has been taking in fluids well and voiding. Last time she voided was around 2 hours ago. Denies any pain with urination. She does not think she is , however she has been out of her control for the past 2 weeks. She denies a known history of diverticulitis, however states that a doctor "suspected it ", however states a CT scan was done and did not confirm it. She denies any associated nausea, vomiting, fever, or chills. She has not taken anything for pain. Left Abdomen Pain Score (Numeric/FACES): 7 - Related Data Allergies Allergy/AdvReac Type Severity Reaction Status Date / Time doxycycline Allergy Severe Itching Verified 08/21/19 17:02 grass pollen Allergy Anaphylactic Verified 08/21/19 17:02 Shock Home Meds: Home Meds ARIPiprazole [Abilify] 10 mg PO DAILY 08/21/19 [History] QUEtiapine Fumarate [Seroquel] 200 mg PO DAILY 08/21/19 [History] cloNIDine [Catapres] 0.1 mg PO DAILY 08/21/19 [History] clonazePAM [Klonopin] 1 mg PO BID 08/21/19 [History] Past Medical History HEENT History: Reports: Other (See Below) Cardiovascular History: Reports: None Respiratory History: Reports: Asthma Gastrointestinal History: Reports: Irritable Bowel Syndrome, Other (See Below) Other Gastrointestinal History: Diverticulitis Genitourinary History: Reports: None 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 pt thinks she has fibromyalgia. uses marijuana for pain control. Neurological History: Reports: None Psychiatric History: Reports: PTSD, Other (See Below) Other Psychiatric History: Borderline personality disorder Endocrine/Metabolic History: Reports: None Hematologic History: Reports: None Immunologic History: Reports: None Oncologic (Cancer) History: Reports: None Dermatologic History: Reports: None - Infectious Disease History Infectious Disease History: Reports: None - Past Surgical History HEENT Surgical History: Reports: Adenoidectomy, Myringotomy w Tube(s) Social & Family History - Family History Family Medical History: Noncontributory - Tobacco Use Smoking Status *Q: Current Every Day Smoker Years of Tobacco use: 13 Packs/Tins Daily: 0.5 - Caffeine Use Caffeine Use: Reports: Soda, Tea - Recreational Drug Use Recreational Drug Use: Yes Recreational Drug Type: Reports: Marijuana/Hashish - Living Situation & Occupation Living situation: Reports: Single, with Significant Other (Boyfriend + his father) Occupation: Unemployed ED ROS GENERAL - Review of Systems Review Of Systems: See Below Constitutional: Reports: No Symptoms. Denies: Fever HEENT: Reports: No Symptoms Respiratory: Reports: No Symptoms Cardiovascular: Reports: No Symptoms, Palpitations GI/Abdominal: Reports: Abdominal Pain. Denies: Diarrhea, Nausea, Vomiting : Reports: No Symptoms Musculoskeletal: Reports: No Symptoms Skin: Reports: No Symptoms Neurological: Reports: No Symptoms Psychiatric: Reports: No Symptoms Hematologic/Lymphatic: Reports: No Symptoms Immunologic: Reports: No Symptoms ED EXAM, GI/ABD - Physical Exam Exam: See Below Exam Limited By: No Limitations General Appearance: Alert, WD/WN, No Apparent Distress Respiratory/Chest: No Respiratory Distress, Lungs Clear, Normal Breath Sounds, No Accessory Muscle Use, Chest Non-Tender Cardiovascular: Normal Peripheral Pulses, Regular Rate, Rhythm, No Edema, No Gallop, No JVD, No Murmur, No Rub GI/Abdominal Exam: Normal Bowel Sounds, Soft, No Organomegaly, No Distention, No Abnormal Bruit, No Mass, Pelvis Stable, Tender (Generalized throughout. Worse in the left lower quadrant.) Neurological: Alert, Oriented, CN II-XII Intact, Normal Cognition, Normal Gait, Normal Reflexes, No Motor/Sensory Deficits Psychiatric: Normal Affect, Normal Mood Skin Exam: Warm, Dry, Intact, Normal Color, No Rash Course - Vital Signs Last Recorded V/S: Last Vital Signs Temp 97.6 F 08/21/19 16:59 Pulse 89 08/21/19 16:59 Resp 16 08/21/19 16:59 BP 114/79 08/21/19 16:59 Pulse Ox 100 08/21/19 16:59 - Orders/Labs/Meds Labs: Laboratory Tests 08/21/19 08/21/19 08/21/19 Range/Units 17:15 17:15 17:15 WBC 7.30 (3.98-10.04) K/mm3 RBC 4.36 (3.98-5.22) M/mm3 Hgb 13.2 (11.2-15.7) gm/dl Hct 39.3 (34.1-44.9) % MCV 90.1 (79.4-94.8) fl MCH 30.3 (25.6-32.2) pg MCHC 33.6 (32.2-35.5) g/dl RDW Std Deviation 45.1 (36.4-46.3) fL Plt Count 290 (182-369) K/mm3 MPV 10.3 (9.4-12.3) fl Neut % (Auto) 65.0 (34.0-71.1) % Lymph % (Auto) 25.3 (19.3-51.7) % Coffee % (Auto) 7.8 (4.7-12.5) % Eos % (Auto) 1.5 (0.7-5.8) Baso % (Auto) 0.3 (0.1-1.2) % Neut # (Auto) 4.74 (1.56-6.13) K/mm3 Lymph # (Auto) 1.85 (1.18-3.74) K/mm3 Coffee # (Auto) 0.57 H (0.24-0.36) K/mm3 Eos # (Auto) 0.11 (0.04-0.36) K/mm3 Baso # (Auto) 0.02 (0.01-0.08) K/mm3 Sodium 140 (136-145) mEq/L Potassium 4.3 (3.5-5.1) mEq/L Chloride 105 (98-107) mEq/L Carbon Dioxide 25 (21-32) mEq/L Anion Gap 14.3 (5-15) BUN 10 (7-18) mg/dL Creatinine 1.1 H (0.55-1.02) mg/dL Est Cr Clr Drug Dosing 55.67 mL/min Estimated GFR (MDRD) > 60 (>60) mL/min BUN/Creatinine Ratio 9.1 L (14-18) Glucose 81 (74-106) mg/dL Calcium 8.9 (8.5-10.1) mg/dL Total Bilirubin 0.2 (0.2-1.0) mg/dL AST 12 L (15-37) U/L ALT 15 (14-59) U/L Alkaline Phosphatase 64 (46-116) U/L C-Reactive Protein < 0.2 (<1.0) mg/dL Total Protein 7.9 (6.4-8.2) g/dl Albumin 4.0 (3.4-5.0) g/dl Globulin 3.9 gm/dL Albumin/Globulin Ratio 1.0 (1-2) HCG, Qual Negative (NEGATIVE) Urine Color (Yellow) Urine Appearance (Clear) Urine pH (5.0-8.0) Ur Specific [place] (1.005-1.030) Urine Protein (Negative) Urine Glucose (UA) (Negative) Urine Ketones (Negative) Urine Occult Blood (Negative) Urine Nitrite (Negative) Urine Bilirubin (Negative) Urine Urobilinogen (0.2-1.0) Ur Leukocyte Esterase (Negative) Urine RBC (0-5) /hpf Urine WBC (0-5) /hpf Ur Squamous Epith Cells (0-5) /hpf Urine Bacteria (FEW) /hpf Urine Mucus (FEW) /hpf 07/10/20 Range/Units 17:30 WBC (3.98-10.04) K/mm3 RBC (3.98-5.22) M/mm3 Hgb (11.2-15.7) gm/dl Hct (34.1-44.9) % MCV (79.4-94.8) fl MCH (25.6-32.2) pg MCHC (32.2-35.5) g/dl RDW Std Deviation (36.4-46.3) fL Plt Count (182-369) K/mm3 MPV (9.4-12.3) fl Neut % (Auto) (34.0-71.1) % Lymph % (Auto) (19.3-51.7) % Coffee % (Auto) (4.7-12.5) % Eos % (Auto) (0.7-5.8) Baso % (Auto) (0.1-1.2) % Neut # (Auto) (1.56-6.13) K/mm3 Lymph # (Auto) (1.18-3.74) K/mm3 Coffee # (Auto) (0.24-0.36) K/mm3 Eos # (Auto) (0.04-0.36) K/mm3 Baso # (Auto) (0.01-0.08) K/mm3 Sodium (136-145) mEq/L Potassium (3.5-5.1) mEq/L Chloride (98-107) mEq/L Carbon Dioxide (21-32) mEq/L Anion Gap (5-15) BUN (7-18) mg/dL Creatinine (0.55-1.02) mg/dL Est Cr Clr Drug Dosing mL/min Estimated GFR (MDRD) (>60) mL/min BUN/Creatinine Ratio (14-18) Glucose (74-106) mg/dL Calcium (8.5-10.1) mg/dL Total Bilirubin (0.2-1.0) mg/dL AST (15-37) U/L ALT (14-59) U/L Alkaline Phosphatase (46-116) U/L C-Reactive Protein (<1.0) mg/dL Total Protein (6.4-8.2) g/dl Albumin (3.4-5.0) g/dl Globulin gm/dL Albumin/Globulin Ratio (1-2) HCG, Qual (NEGATIVE) Urine Color Light yellow (Yellow) Urine Appearance Clear (Clear) Urine pH 7.0 (5.0-8.0) Ur Specific [place] 1.020 (1.005-1.030) Urine Protein Negative (Negative) Urine Glucose (UA) Negative (Negative) Urine Ketones Negative (Negative) Urine Occult Blood Negative (Negative) Urine Nitrite Negative (Negative) Urine Bilirubin Negative (Negative) Urine Urobilinogen 0.2 (0.2-1.0) Ur Leukocyte Esterase Negative (Negative) Urine RBC 0-5 (0-5) /hpf Urine WBC Not seen (0-5) /hpf Ur Squamous Epith Cells 0-5 (0-5) /hpf Urine Bacteria Rare (FEW) /hpf Urine Mucus Rare (FEW) /hpf Meds: Medications Discontinued Medications Generic Name Dose Route Start Last Admin Trade Name Vera PRN Reason Stop Dose Admin Hydromorphone HCl 0.5 mg 08/21/19 17:16 08/21/19 17:32 Dilaudid IVPUSH 08/21/19 17:17 0.5 mg ONETIME ONE Administration Hydromorphone HCl 0.5 mg 08/21/19 19:26 08/21/19 19:49 Dilaudid IVPUSH 08/21/19 19:27 0.5 mg ONETIME ONE Administration Sodium Chloride 1,000 mls @ 150 mls/hr 08/21/19 17:30 08/21/19 17:35 Normal Saline IV 150 mls/hr ASDIRECTED ROYCE Administration Magnesium Citrate 296 ml 08/21/19 19:26 08/21/19 19:49 Citrate Of Magnesia PO 08/21/19 19:27 296 ml ONETIME ONE Administration Ondansetron HCl 4 mg 08/21/19 17:17 08/21/19 17:30 Zofran IVPUSH 08/21/19 17:18 4 mg ONETIME ONE Administration Sodium Chloride 10 ml 08/21/19 17:16 08/21/19 17:35 Saline Flush FLUSH 10 ml ASDIRECTED PRN Administration Keep Vein Open - Re-Assessments/Exams Free Text/Narrative Re-Assessment/Exam: Otology was grossly unremarkable. WBCs were normal. CRP was normal. Urinalysis was negative for any infection. test was negative. X-ray completed of the abdomen pelvis showed increased stool throughout the colon. Patient will be sent home with a bottle of magnesium citrate for constipation. Discharge instructions as documented. Departure - Departure Time of Disposition: 19:55 Disposition: Home, Self-Care 01 Condition: Good Clinical Impression: Abdominal pain Qualifiers: Abdominal location: right lower quadrant Qualified Code(s): R10.31 - Right lower quadrant pain - Discharge Information *PRESCRIPTION DRUG MONITORING PROGRAM REVIEWED*: No *COPY OF PRESCRIPTION DRUG MONITORING REPORT IN PATIENT DEANNE: No Instructions: Constipation, Adult, [id number] Referrals: Brittany Riojas SURFACE GRINDER TENDER [Primary Care Provider] - Forms: ED Department Discharge Additional Instructions: You were seen in the emergency department today for left-sided abdominal pain since this morning. Work-up included blood work, urinalysis, and an x-ray of your abdomen. He work-up and urinalysis were found to be normal. There is an excess of stool throughout your colon which is likely the cause of your pain. You have been sent home with a bottle of magnesium citrate. Recommend that you drink this entire bottle upon returning home. This should produce a number of bowel movements some of which may be loose. After you have completed the cleanse, you should have relief of your symptoms. Would recommend that you start a daily bowel regimen such as Colace to prevent recurrence of constipation. If you should experience any new or worsening symptoms of concern, please not hesitate to return to the emergency department. Sepsis Event Note (ED) - Evaluation Sepsis Screening Result: No Definite Risk
--- NOTE | 2019-08-21 19:23 | CR ---
Abdomen: Supine and upright views the abdomen were obtained. Comparison: Prior abdominal x-ray of 02/25/19. Bowel gas pattern appears normal. Calcifications are seen within the pelvis compatible with phleboliths. No soft tissue abnormality is seen. No free air is seen. Bony structures are unremarkable. Impression: 1. Nothing acute is seen on 2 view abdominal x-ray. Diagnostic code #2 This report was dictated in MDT
[2019-08-21] MEDS ORDERED: Magnesium Citrate Solution 296 ML Bottle PO ONE (19:26)
== END 2019-08-21 20:04 | disposition home or self-care (01) ==
LOC: JD.ED 16:51
DX: R10.32 Left lower quadrant pain (principal); R10.31 Right lower quadrant pain; F43.10 Post-traumatic stress disorder, unspecified; F17.210 Nicotine dependence, cigarettes, uncomplicated; Z88.1 Allergy status to other antibiotic agents; Z91.048 Other nonmedicinal substance allergy status; Z79.899 Other long term (current) drug therapy
CPT/HCPCS: 36415; 74019; 80053; 81001; 84703; 85025; 86140; 96374; 96375; 96376; 99284; A9270; J1170; J2405; J7030

== ENCOUNTER 2019-10-23 11:20 | Emergency (ER) | payer MEDICAID ==
[2019-10-23] MEDS ORDERED: Sodium Chloride 0.9% 10 ML Syringe FLUSH PRN (11:51)
[2019-10-23] MEDS ORDERED: Sodium Chloride 0.9% 1,000 ML IV ONE (11:53)
[2019-10-23] MEDS ORDERED: Metoclopramide 10 MG/2 ML SDV IVPUSH ONE (11:54)
--- NOTE | 2019-10-23 12:19 | EDM.PDOC ---
ED HPI GENERAL MEDICAL PROBLEM - General Chief Complaint: Abdominal Pain Stated Complaint: NAUSEA/VOMITING/BODY ACHES Time Seen by Provider: 10/23/19 11:42 Source of Information: Reports: Patient, RN Notes Reviewed History Limitations: Reports: No Limitations - History of Present Illness INITIAL COMMENTS - FREE TEXT/NARRATIVE: Patient is a 24-year-old female who presents to the ED for the evaluation of her GI symptoms. She notes that she has been having nausea/vomiting/body aches, for around 4 days now. She also is complaining of some right ear pain, and states that she did lose her sense of taste yesterday. She notes that she has been tested 3 times for coronavirus, and has been negative all 3 times. 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 She also states that she was in [place] at the end of August. She went to the walk-in clinic yesterday for symptoms, was given Zofran, but has not been able to keep that down nor has she been able to keep any food or fluids down. She states she has been trying to drink Pedialyte but has been unsuccessful. She does have a primary care provider, Brittany Riojas, she states that her last menstrual period was roughly 2 months ago, she has been having unprotected sex since then, so she is not sure if she be or not. She is not in any obvious respiratory distress respiratory rate is 20 breaths/min, O2 sats are 100% on room air, temperature is 98.8 F in the ER. Blood pressure is mildly low at 98/68, but she is a small framed girl and this could be due to that. Treatments HUMAN RESOURCES PSYCHOLOGIST: Reports: Other (see below) Other Treatments HUMAN RESOURCES PSYCHOLOGIST: zofran at clinic yesterday script 8 mg prn but not helping Back Pain Score (Numeric/FACES): 6 - Related Data Allergies Allergy/AdvReac Type Severity Reaction Status Date / Time doxycycline Allergy Severe Itching Verified 08/21/19 17:02 grass pollen Allergy Anaphylactic Verified 08/21/19 17:02 Shock Home Meds: Home Meds ARIPiprazole [Abilify] 10 mg PO DAILY 08/21/19 [History] QUEtiapine Fumarate [Seroquel] 200 mg PO DAILY 08/21/19 [History] cloNIDine [Catapres] 0.1 mg PO DAILY 08/21/19 [History] clonazePAM [Klonopin] 1 mg PO BID 08/21/19 [History] Past Medical History Respiratory History: Reports: Asthma Gastrointestinal History: Reports: Irritable Bowel Syndrome, Other (See Below) Other Gastrointestinal History: Diverticulitis 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 pt thinks she has fibromyalgia. uses marijuana for pain control. Psychiatric History: Reports: PTSD, Other (See Below) Other Psychiatric History: Borderline personality disorder - Past Surgical History HEENT Surgical History: Reports: Adenoidectomy, Myringotomy w Tube(s) Social & Family History - Family History Family Medical History: Noncontributory - Tobacco Use Smoking Status *Q: Current Every Day Smoker Years of Tobacco use: 13 Packs/Tins Daily: 0.5 - Caffeine Use Caffeine Use: Reports: Coffee, Soda, Tea - Recreational Drug Use Recreational Drug Use: Yes Recreational Drug Type: Reports: Marijuana/Hashish - Living Situation & Occupation Living situation: Reports: Single, with Significant Other (Boyfriend + his father) Occupation: Unemployed ED ROS GENERAL - Review of Systems Review Of Systems: Comprehensive ROS is negative, except as noted in HPI. ED EXAM, GI/ABD - Physical Exam Exam: See Below Exam Limited By: No Limitations General Appearance: Alert, WD/WN, No Apparent Distress Eyes: Bilateral: Normal Appearance, EOMI Ears: Normal External Exam, Normal Canal (lots of cerumen in bilateral canals), Normal TMs Nose: Normal Inspection, Normal Mucosa, No Blood Throat/Mouth: Normal Inspection, Normal Lips, Normal Teeth, Normal Gums, Normal Oropharynx, Normal Voice, No Airway Compromise Head: Atraumatic, Normocephalic Neck: Normal Inspection Respiratory/Chest: No Respiratory Distress, Lungs Clear, Normal Breath Sounds, No Accessory Muscle Use, Chest Non-Tender, Other (pt has intermittent dry cough while examining her) Cardiovascular: Normal Peripheral Pulses, Regular Rate, Rhythm, No Murmur GI/Abdominal Exam: Normal Bowel Sounds, Soft, No Distention, No Mass, Tender (generalized tenderness) Extremities: Normal Inspection, Normal Capillary Refill Neurological: Alert, Oriented, Normal Cognition, No Motor/Sensory Deficits Psychiatric: Normal Affect, Normal Mood Skin Exam: Warm, Dry, Intact, Normal Color, No Rash Course - Vital Signs Last Recorded V/S: Last Vital Signs Temp 98.8 F 10/23/19 11:44 Pulse 97 10/23/19 11:44 Resp 20 10/23/19 11:44 BP 98/68 10/23/19 11:44 Pulse Ox 100 10/23/19 11:44 - Orders/Labs/Meds Orders: Active Orders 24 hr Category Date Time Status Peripheral IV Care [RC] . DIRECTED Care 10/23/19 11:53 Active Sodium Chloride 0.9% [Saline Flush] Med 10/23/19 11:51 Active 10 ml FLUSH ASDIRECTED PRN Peripheral IV Insertion Adult [OM.PC] Routine Oth 10/23/19 11:51 Ordered Medication Orders Sodium Chloride (Saline Flush) 10 ml FLUSH ASDIRECTED PRN PRN Reason: Keep Vein Open Last Admin: 10/23/19 12:33 Dose: 10 ml Documented by: KAYA Labs: Laboratory Tests 10/23/19 10/23/19 10/23/19 Range/Units 12:25 12:25 12:25 WBC 6.45 (3.98-10.04) K/mm3 RBC 4.49 (3.98-5.22) M/mm3 Hgb 13.3 (11.2-15.7) gm/dl Hct 39.6 (34.1-44.9) % MCV 88.2 (79.4-94.8) fl MCH 29.6 (25.6-32.2) pg MCHC 33.6 (32.2-35.5) g/dl RDW Std Deviation 46.0 (36.4-46.3) fL Plt Count 326 (182-369) K/mm3 MPV 10.2 (9.4-12.3) fl Neut % (Auto) 64.1 (34.0-71.1) % Lymph % (Auto) 21.6 (19.3-51.7) % [place] % (Auto) 11.9 (4.7-12.5) % Eos % (Auto) 1.9 (0.7-5.8) Baso % (Auto) 0.3 (0.1-1.2) % Neut # (Auto) 4.14 (1.56-6.13) K/mm3 Lymph # (Auto) 1.39 (1.18-3.74) K/mm3 [place] # (Auto) 0.77 H (0.24-0.36) K/mm3 Eos # (Auto) 0.12 (0.04-0.36) K/mm3 Baso # (Auto) 0.02 (0.01-0.08) K/mm3 Sodium 137 (136-145) mEq/L Potassium 3.8 (3.5-5.1) mEq/L Chloride 98 (98-107) mEq/L Carbon Dioxide 26 (21-32) mEq/L Anion Gap 16.8 H (5-15) BUN 9 (7-18) mg/dL Creatinine 1.0 (0.55-1.02) mg/dL Est Cr Clr Drug Dosing 61.23 mL/min Estimated GFR (MDRD) > 60 (>60) mL/min BUN/Creatinine Ratio 9.0 L (14-18) Glucose 100 (74-106) mg/dL Calcium 9.3 (8.5-10.1) mg/dL Magnesium 1.9 (1.8-2.4) mg/dl Total Bilirubin 0.5 (0.2-1.0) mg/dL AST 20 (15-37) U/L ALT 28 (14-59) U/L Alkaline Phosphatase 74 (46-116) U/L Total Protein 8.2 (6.4-8.2) g/dl Albumin 4.3 (3.4-5.0) g/dl Globulin 3.9 gm/dL Albumin/Globulin Ratio 1.1 (1-2) HCG, Qual Negative (NEGATIVE) SARS Virus RNA (PCR) (NEGATIVE) 10/23/19 Range/Units 12:30 WBC (3.98-10.04) K/mm3 RBC (3.98-5.22) M/mm3 Hgb (11.2-15.7) gm/dl Hct (34.1-44.9) % MCV (79.4-94.8) fl MCH (25.6-32.2) pg MCHC (32.2-35.5) g/dl RDW Std Deviation (36.4-46.3) fL Plt Count (182-369) K/mm3 MPV (9.4-12.3) fl Neut % (Auto) (34.0-71.1) % Lymph % (Auto) (19.3-51.7) % [place] % (Auto) (4.7-12.5) % Eos % (Auto) (0.7-5.8) Baso % (Auto) (0.1-1.2) % Neut # (Auto) (1.56-6.13) K/mm3 Lymph # (Auto) (1.18-3.74) K/mm3 [place] # (Auto) (0.24-0.36) K/mm3 Eos # (Auto) (0.04-0.36) K/mm3 Baso # (Auto) (0.01-0.08) K/mm3 Sodium (136-145) mEq/L Potassium (3.5-5.1) mEq/L Chloride (98-107) mEq/L Carbon Dioxide (21-32) mEq/L Anion Gap (5-15) BUN (7-18) mg/dL Creatinine (0.55-1.02) mg/dL Est Cr Clr Drug Dosing mL/min Estimated GFR (MDRD) (>60) mL/min BUN/Creatinine Ratio (14-18) Glucose (74-106) mg/dL Calcium (8.5-10.1) mg/dL Magnesium (1.8-2.4) mg/dl Total Bilirubin (0.2-1.0) mg/dL AST (15-37) U/L ALT (14-59) U/L Alkaline Phosphatase (46-116) U/L Total Protein (6.4-8.2) g/dl Albumin (3.4-5.0) g/dl Globulin gm/dL Albumin/Globulin Ratio (1-2) HCG, Qual (NEGATIVE) SARS Virus RNA (PCR) Negative (NEGATIVE) Meds: Medications Generic Name Dose Route Start Last Admin Trade Name Freq PRN Reason Stop Dose Admin Sodium Chloride 10 ml 10/23/19 11:51 10/23/19 12:33 Saline Flush FLUSH 10 ml ASDIRECTED PRN Administration Keep Vein Open Discontinued Medications Generic Name Dose Route Start Last Admin Trade Name Freq PRN Reason Stop Dose Admin Sodium Chloride 1,000 mls @ 999 mls/hr 10/23/19 11:53 10/23/19 12:32 Normal Saline IV 10/23/19 12:53 999 mls/hr ONETIME ONE Administration Metoclopramide HCl 7.5 mg 10/23/19 11:54 10/23/19 12:32 Reglan IVPUSH 10/23/19 11:55 7.5 mg ONETIME ONE Administration - Re-Assessments/Exams Free Text/Narrative Re-Assessment/Exam: 10/23/19 12:21 Patient presents to the ED for evaluation of her GI symptoms. We will give her some fluids, nausea medication, take some labs and some basic x-rays for initial evaluation we will repeat a coronavirus test today as she has new loss of her sense of taste. 10/23/19 13:47 Her did come back fairly unremarkable. Coronavirus is negative. hCG is negative. X-rays are pending at this time. We will wait for those before we decide on further disposition, although I am hopeful that she can go home. I did direct nursing staff to give her something to drink to see if this will stay down. 10/23/19 14:56 She was able to tolerate fluids, x-rays are unremarkable and show no focal abnormalities appreciated. Patient was feeling better and is requesting go home at this time. She does have Zofran for home use, I will direct her to take this as directed, and have her stick to clear liquids for the next 24 to 48 hours advance to bland as tolerated. She verbalized understanding. Departure - Departure Time of Disposition: 14:56 Disposition: Home, Self-Care 01 Condition: Good Clinical Impression: Gastroenteritis - Discharge Information *PRESCRIPTION DRUG MONITORING PROGRAM REVIEWED*: No *COPY OF PRESCRIPTION DRUG MONITORING REPORT IN PATIENT DEANNE: No Instructions: Viral Gastroenteritis, Adult, [id number], Nausea and Vomiting, Adult, [id number] Referrals: Brittany Riojas, COSTUMER ASSISTANT [Primary Care Provider] - Forms: ED Department Discharge, ED Return to Work/School Form Additional Instructions: You have been evaluated in the ED for nausea/vomiting/diarrhea. It is likely that this is caused from a viral gastroenteritis. Your labs done today are unremarkable. X-rays done today are also unremarkable. Your COVID-19 test was negative at today's visit. You have received IV fluid and medications in the ED to help with the dehydration from the vomiting and diarrhea. Over the next 24-48 hours please try to limit diet to clear liquids and advance as tolerate to a bland diet to alleviate symptoms of nausea/vomiting/diarrhea. Please use the Zofran every 8 hours as needed for nausea. Please return to the ED if your symptoms should change or worsen. Sepsis Event Note (ED) - Evaluation Sepsis Screening Result: No Definite Risk - Focused Exam Vital Signs: Vital Signs Temp Pulse Resp BP Pulse Ox 10/23/19 11:44 98.8 F 97 20 98/68 100 - My Orders Last 24 Hours: My Active Orders 10/23/19 11:51 Sodium Chloride 0.9% [Saline Flush] 10 ml FLUSH ASDIRECTED PRN Peripheral IV Insertion Adult [OM.PC] Routine 10/23/19 11:53 Peripheral IV Care [RC] . DIRECTED - Assessment/Plan Last 24 Hours: My Active Orders 10/23/19 11:51 Sodium Chloride 0.9% [Saline Flush] 10 ml FLUSH ASDIRECTED PRN Peripheral IV Insertion Adult [OM.PC] Routine 10/23/19 11:53 Peripheral IV Care [RC] . DIRECTED
--- NOTE | 2019-10-23 14:50 | CR ---
Abdominal series: Supine and upright views the abdomen were obtained as well as frontal view of the chest. Comparison: Prior abdominal x-ray of 08/21/19, no prior chest x-ray is available. Heart size and mediastinum are normal. Lungs are clear with no acute parenchymal change. Bony structures are unremarkable within the chest. Bowel gas pattern is normal. Calcifications are seen within the pelvis likely representing phleboliths. Bony structures within the abdomen appear unremarkable. Impression: 1. Nothing acute is seen on abdominal series. Diagnostic code #1 This report was dictated in MDT
== END 2019-10-23 15:15 | disposition home or self-care (01) ==
LOC: JD.ED 11:20
DX: K52.9 Noninfective gastroenteritis and colitis, unspecified (principal); J45.909 Unspecified asthma, uncomplicated; F17.210 Nicotine dependence, cigarettes, uncomplicated; Z20.828 Contact with and (suspected) exposure to other viral communicable diseases; Z88.1 Allergy status to other antibiotic agents; Z91.048 Other nonmedicinal substance allergy status; Z79.899 Other long term (current) drug therapy
CPT/HCPCS: 36415; 74022; 80053; 83735; 84703; 85025; 87635; 96361; 96374; 99284; J2765; J7030; 99283; U0002